=== PATIENT | female | born 1990 | race Caucasian/White ===

== ENCOUNTER 2024-08-03 17:04 | Emergency (ER) | payer MEDICAID, SELFPAY ==
[2024-08-03 17:12] VITALS: BP 94/54; PULSE 117; RESP 15; TEMP 36.9; O2SAT 96; BMI 22.7
[2024-08-03 17:48] LABS: Basophils % 0.5 %; Eosinophils % 0.3 %; Hematocrit 38.2 % (36-47); Lymphocytes # 1.4 10^3/uL (0.8-4.8); Lymphocytes % 37.7 %; Mean Corpuscular HGB Conc 33.5 g/dL (30-55); Mean Corpuscular Hemoglobin 28.5 pg (27-33); Mean Corpuscular Volume 85.1 fl (85-98); Mean Platelet Volume 10.4 fL (7.4-10.4); Monocytes # 0.3 10^3/uL (0.2-0.9); Monocytes % 7.4 %; Neutrophils # 2.03 10^3/uL (1.8-7.7); Neutrophils % 53.8 %; Nucleated Red Blood Cells % 0 %; Platelet Count 142 10^3/cmm (157-399); Red Blood Count 4.49 10^6/uL (3.85-5.65); Red Cell Distribution Width 12.8 % (12.1-15.1); White Blood Count 3.77 10^3/uL (3.29-11.43)
[2024-08-03 17:59] LABS: Slide Review Slide Review Perform
[2024-08-03 18:01] LABS: HCG, Serum Qual Negative (Negative)
[2024-08-03 18:08] LABS: Alanine Aminotransferase 121 U/L (0-33); Albumin Level 3.9 g/dL (3.5-5.2); Alkaline Phosphatase 133 U/L (35-105); Anion Gap 18.9 (5-19); Aspartate Amino Transferase 112 U/L (0-32); Blood Urea Nitrogen 8 mg/dL (6-20); Calcium 8.4 mg/dL (8.5-10.5); Carbon Dioxide 21 mmol/L (22-29); Chloride 104 mmol/L (98-107); Creatinine Clr Calc Pharmacy 203.5353; Globulin 2.7 g/dL (1.3-4.6); Glomerular Filtration Rate 186.2 mL/min (90-130); Glucose 82 mg/dL (65-115); Lipase 17 U/L (13-60); Osmolality Calculated 287 mOsm/kg (285-295); Potassium 3.9 mmol/L (3.5-5.1); Sodium 140 mmol/L (136-145); Total Bilirubin 0.8 mg/dL (0.15-1.2); Total Protein 6.6 g/dL (6.6-8.7)
[2024-08-03 20:19] LABS: Bilirubin Urine 1+ (Negative); Blood Urine Negative (Negative); Glucose Urine UA Negative (Normal); Ketones Urine 4+ (Negative); Leukocyte Esterase Urine Negative (Negative); Nitrate Urine Negative (Negative); Protein Urine Trace (Negative); Specific Gravity, Urine 1.022 (1.005-1.030); Urine Appearance Clear (CLEAR); Urine Color Dark Yellow (Yellow); pH Urine 5.5 (5-7)
[2024-08-03 20:21] LABS: Add Urine Microscopic? YES; Bacteria Urine None Seen /hpf; Hyaline Casts Urine 2.87 /lpf; RBC Urine 0-2 /hpf (0-2); Squamous Epithelial Cell Urine 0-5 /hpf (0-5)
--- NOTE | 2024-08-03 20:38 | CTR_ITS ---
PROCEDURE INFORMATION: Exam: CT Abdomen And Pelvis With Contrast Exam date and time: 08/03/2024 9:07 PM Age: 33 years old Clinical indication: Pain and abnormal findings; Abnormal lab test; Elevated liver enzymes; Fever and nausea and vomiting; Abdominal pain; Localized; Prior surgery; Surgery date: 6+ months; Surgery type: Left oophorectomy. Iud; Lower abd pain with fever and n/v. Hypotensive with elevated lfts. ; Additional info: Abd pain, fever TECHNIQUE: Imaging protocol: Computed tomography of the abdomen and pelvis with contrast. Radiation optimization: All CT scans at this facility use at least one of these dose optimization techniques: automated exposure control; mA and/or kV adjustment per patient size (includes targeted exams where dose is matched to clinical indication); or iterative reconstruction. Contrast material: OMNI 350; Contrast volume: 100 ml; Contrast route: INTRAVENOUS (IV); COMPARISON: No relevant prior studies available. RADIATION DOSE METRICS: Total DLP (mGy-cm): 1125.7 FINDINGS: Liver: Liver is normal in size and attenuation. Gallbladder and biliary ducts: No biliary tree dilation. No high density gallstones or gallbladder inflammatory change. Pancreas: Normal. No ductal dilation. Spleen: Spleen demonstrates homogeneous parenchyma and measures 12.3 cm in length. Adrenal glands: Normal configuration. Kidneys and ureters: Kidneys enhance symmetrically and demonstrate no evidence of mass, calculus, obstruction, or inflammation. Stomach and bowel: Small amount of fluid noted in the stomach. No visible gastric ulcer or significant mucosal enhancement. Normal caliber small bowel. Moderate fecal debris noted throughout the entire colon. Appendix: Normal appendix is confirmed. Intraperitoneal space: No free air. No significant fluid collection. Vasculature: Normal caliber arterial structures. Lymph nodes: No enlarged lymph nodes. Urinary bladder: Unremarkable as visualized. Reproductive: Prominent right ovary and adnexal soft tissue. Left ovary is not seen with confidence. Normal contour uterus. IUD appears properly positioned. Bones/joints: No fracture or destructive lesion. Soft tissues: No perineal/perianal abscess or inflammation. CT/CT abdomen pelvis w con* [id number] IMPRESSION: 1. Prominent heterogeneous right adnexal structures and ovary. Consider ultrasound for more detailed characterization. 2. Normal appearance of the liver, gallbladder, and biliary tree. Etiology of patient's abnormal liver function tests is unclear.
[2024-08-03] MEDS: sodium chloride 0.9% 1,000 ML 999 ML IV ×2 (21:03→22:02)
[2024-08-03] MEDS: ondansetron 2 mg/ML SDV 2 mL 4 MG IVP (21:03)
[2024-08-03] MEDS: ketorolac 30 mg/mL INJ IVP (21:03)
[2024-08-03 21:08] LABS: Lactic Sepsis W/Reflex 0.9 mmol/L (0.5-2.2)
[2024-08-03] MEDS: iohexol 350 mg/mL 500 mL Btl (per mL) IV (21:10)
[2024-08-03] MEDS: piperacillin-tazobactam 3.375 GM in sodium chloride 0.9% (plus) 50 ML IV (21:29)
--- NOTE | 2024-08-03 21:52 | USR_ITS ---
PROCEDURE INFORMATION: Exam: US Pelvis, Complete, Non-Obstetric Exam date and time: 08/03/2024 10:43 PM Age: 33 years old Clinical indication: Abnormal findings; Abnormal imaging test; Prior surgery; Surgery date: 6+ months; Surgery type: Unsure of dates but patient has had left ovary removed; Additional info: Right adenexal mass TECHNIQUE: Imaging protocol: Transabdominal pelvic nonobstetric ultrasound. Complete exam. Real time ultrasound with image documentation. COMPARISON: CT abdomen pelvis w con* [id number] 08/03/2024 9:07 PM FINDINGS: Uterus: Uterus is normal in morphology. IUD appears properly positioned. There is a sliver of fluid in the endometrial canal. Right ovary/adnexa: Physiologic appearance of the right ovary with numerous peripheral follicles. Ovary measures 2.6 x 3.5 x 3.9 cm for a volume of 18 cc. A lobulated anterior follicle measures 1.8 cm maximal dimension. There is low volume free fluid in the right hemipelvis. Color Doppler flow imaging and spectral analysis confirm appropriate arterial and venous waveforms. Left ovary/adnexa: Left ovary is surgically absent by report. No left adnexal mass. Intraperitoneal space: No intraperitoneal fluid. Urinary bladder: Normal. US/US pelv w/transvag [id number] IMPRESSION: Mildly enlarged right ovary with numerous peripheral follicles may reflect polycystic ovarian disease. There is normal blood flow in the ovary. No evidence of tubo-ovarian abscess.
[2024-08-03 22:03] VITALS: BP 96/60; PULSE 72; RESP 18; O2SAT 97
--- NOTE | 2024-08-03 22:34 | ED_ITS ---
HPI - Female Genitourinary 2 General: Chief complaint: Urogenital-Female Stated complaint: lower backpain, n/v Time Seen by Provider: 08/03/24 20:27 History of Present Illness: 33 year old female patient presenting with back pain, abdominal pain, nausea and vomiting. She has run fevers she said. She was seen at urgent care earlier in the week, and given ciprofloxacin for a urinary tract infection. She says she has not improved. She feels generally weak, dizzy. She has not held solid food down. She does not believe she is . Related Data Previous Rx's ?Medication ?Instructions ?Recorded ketorolac 10 mg tablet 10 mg PO TID PRN pain #10 ta bs 08/03/24 ondansetron 4 mg disintegrating 4 mg PO Q6H PRN nausea and 08/03/24 tablet vomiting #14 tabs Allergies Allergy/AdvReac Type Severity Reaction Status Date / Time No Known Allergies Allergy Verified 08/03/24 17:15 Physical Exam 2 Const: COMMON NORMALS: no acute distress GENERAL APPEARANCE: cooperative; not ill appearing and not frail appearing HENMT: COMMON NORMALS: normocephalic, atraumatic and Normal external nose present HEAD & SCALP: normocephalic and atraumatic FACE & SINUS: normal facial exam and face symmetric NOSE: Normal external nose present Eye: COMMON NORMALS: Equal, round and reactive pupils present and EOMs intact bilaterally PUPIL: Yes Equal, round and reactive pupils present Neck/C-Spine: GENERAL: Yes trachea midline Chest: CHEST: Yes Symmetrical chest wall rise Resp: COMMON NORMALS: normal respiratory effort, No retractions, No use of accessory muscles and clear to auscultation bilaterally AUSCULTATION: clear to auscultation bilaterally Cardio: COMMON NORMALS: regular rate and regular rhythm RATE: regular rate RHYTHM: regular rhythm GI: COMMON NORMALS: Normal to inspection, nondistended, normoactive bowel sounds present PALPATION: Yes Tenderness to palpation present (GI) (diffusely) Extremity: COMMON NORMALS: no pedal edema Neuro: SAVANNA COMA SCALE: document GCS findings [place] coma scale eye opening: Spontaneous [place] coma scale verbal response: Orientated [place] coma scale motor response: Obey commands [place] coma scale total score: 15 S ENSORY EXAM: Yes extremities (intact) Psych: COMMON NORMALS: speech normal SPEECH: Yes normal speech Skin: COMMON NORMALS: no rashes or lesions noted GENERAL SKIN EXAM: no rashes or lesions noted Course 2 Vital Signs: Vital signs: Vital Signs Temperature 98.4 F 08/03/24 17:12 Pulse Rate 62 08/03/24 23:59 Respiratory Rate 16 08/03/24 23:59 Blood Pressure 107/65 08/03/24 23:59 Pulse Oximetry 98 08/03/24 23:59 Oxygen Delivery Me thod Room Air 08/03/24 22:03 MDM - Female Medical Decision Making This patient was slightly hypotensive on arrival. She has improved after 2 liters intravenous fluid bolus, ketorolac and Zofran. She feels much better. She has had a dose of IV antibiotics. WBC is 3.8. I liked gases 0.9. Urinalysis is negative for leukocyte esterase, but has 6 to 10 WBC's. Indicitaive of partially treated UTI. Slight elevation in LFTs. Acetamenophen level is normal. tick panel is sent although there is no history of tick bite given mild low wbc and platelet counts, elevated lfts. Prominent heterogeneous right adnexal structures. Pelvic ultrasound shows are right ovary with numerous peripheral follicles suggestive of PCOS. With improvement in her condition, she'll be discharged home to continue her antibiotics for UTI she was previously prescribed. Oral hydration. Returned for worsening symptoms. Symptomatic treatment otherwise. Lab Data 08/03/24 17:39 08/03/24 17:39 Radiology Impressions Abdomen/Pelvis CT 08/03/24 20:38 IMPRESSION: 1. Prominent heterogeneous right adnexal structures and ovary. Consider ultrasound for more detailed characterization. 2. Normal appearance of the liver, gallbladder, and biliary tree. Etiology of patient's abnormal liver function tests is unclear. Pelvic/Transvag US 08/03/24 21:52 IMPRESSION: Mildly enlarged right ovary with numerous peripheral follicles may reflect polycystic ovarian disease. There is normal blood flow in the ovary. No evidence of tubo-ovarian abscess. Laboratory Results WBC 3.77 10^3/uL (3.29-11.43) 08/03/24 17:39 RBC 4.49 10^6/uL (3.85-5.65) 08/03/24 17:39 Hgb 12.80 g/dL (11.27-16.99) 08/03/24 17:39 Hct 38.2 % (36-47) 08/03/24 17:39 MCV 85.1 fl (85-98) 08/03/24 17:39 MCH 28.5 pg (27-33) 08/03/24 17:39 MCHC 33.5 g/dL (30-55) 08/03/24 17:39 RDW 12.8 % (12.1-15.1) 08/03/24 17:39 Plt Count 142 10^3/cmm (157-399) L 08/03/24 17:39 MPV 10.4 fL (7.4-10.4) 08/03/24 17:39 Neut % (Auto) 53.8 % 08/03/24 17:39 Lymph % (Auto) 37.7 % 08/03/24 17:39 [place] % (Auto) 7.4 % 08/03/24 17:39 Eos % (Auto) 0.3 % 08/03/24 17:39 Baso % (Auto) 0.5 % 08/03/24 17:39 Neut # (Auto) 2.03 10^3/uL (1.8-7.7) 08/03/24 17:39 Lymph # (Auto) 1.4 10^3/uL (0.8-4.8) 08/03/24 17:39 [place] # (Auto) 0.3 10^3/uL (0.2-0.9) 08/03/24 17:39 Eos # (Auto) 0.0 10^3/uL (0.0-0.8) 08/03/24 17:39 Baso # (Auto) 0.0 10^3/uL (0.0-0.1) 08/03/24 17:39 Nucleated RBC % (auto) 0 % 08/03/24 17:39 Nucleated RBCs # 0.0 /100WBC 08/03/24 17:39 Sodium 140 mmol/L (136-145) 08/03/24 17:39 Potassium 3.9 mmol/L (3.5-5.1) 08/03/24 17:39 Chloride 104 mmol/L (98-107) 08/03/24 17:39 Carbon Dioxide 21 mmol/L (22-29) L 08/03/24 17:39 Anion Gap 18.9 (5-19) 08/03/24 17:39 BUN 8 mg/dL (6-20) 08/03/24 17:39 Creatinine 0.4 mg/dL (0.5-0.9) L 08/03/24 17:39 GFR Calculation 186.2 mL/min (90-130) H 08/03/24 17:39 Glucose 82 mg/dL (65-115) 08/03/24 17:39 Calculated Osmolality 287 mOsm/kg (285-295) 08/03/24 17:39 Lactic Acid 0.9 mmol/L (0.5-2.2) 08/03/24 17:39 Calcium 8.4 mg/dL (8.5-10.5) L 08/03/24 17:39 Total Bilirubin 0.8 mg/dL (0.15-1.2) 08/03/24 17:39 AST 112 U/L (0-32) H 08/03/24 17:39 ALT 121 U/L (0-33) H 08/03/24 17:39 Alkaline Phosphatase 133 U/L (35-105) H 08/03/24 17:39 Total Protein 6.6 g/dL (6.6-8.7) 08/03/24 17:39 Albumin 3.9 g/dL (3.5-5.2) 08/03/24 17:39 Globulin 2.7 g/dL (1.3-4.6) 08/03/24 17:39 Lipase 17 U/L (13-60) 08/03/24 17:39 HCG, Qual Negative (Negative) 08/03/24 17:39 Urine Color Dark yellow (Yellow) A 08/03/24 20:07 Urine Appearance Clear (CLEAR) 08/03/24 20:07 Urine pH 5.5 (5-7) 08/03/24 20:07 Ur Specific [place] 1.022 (1.005-1.030) 08/03/24 20:07 Urine Protein Trace (Negative) A 08/03/24 20:07 Urine Glucose (UA) Negative (Normal) 08/03/24 20: Urine Ketones 4+ (Negative) 08/03/24 20:07 Urine Blood Negative (Negative) 08/03/24 20:07 Urine Nitrate Negative (Negative) 08/03/24 20:07 Urine Bilirubin 1+ (Negative) H 08/03/24 20:07 Urine Urobilinogen 1.0 mg/dL (Negative) 08/03/24 20:07 Ur Leukocyte Esterase Negative (Negative) 08/03/24 20:07 Urine RBC 0-2 /hpf (0-2) 08/03/24 20:07 Urine WBC 6-10 /hpf (0-5) 08/03/24 20:07 Ur Squamous Epith Cells 0-5 /hpf (0-5) 08/03/24 20:07 Amorphous Sediment Not Reportable 08/03/24 20:07 Urine Bacteria None seen /hpf (NONE) 08/03/24 20:07 Hyaline Casts 2.87 /lpf 08/03/24 20:07 Acetaminophen < 5.0 ug/mL (10-30) L 08/03/24 17:39 All radiology interpretation(s) finalized by discharge Discharge Plan Discharge Patient Disposition: Home Clinical Impression: Urinary tract infection, Acute dehydration Condition: Stable Prescriptions: New ondansetron 4 mg tablet,disintegrating 4 mg PO Q6H PRN (Reason: nausea and vomiting) Qty: 14 0RF ketorolac 10 mg tablet 10 mg PO TID PRN (Reason: pain) Qty: 10 0RF Discharge Orders: Discharge ED (Routine); Ordered 08/03/24 Ordered By: Cornelius Lott Patient Instructions: Dehydration (ED), Urinary Tract Infection in Women (ED), Opioid Safety, Pain Management Activity Restrictions/Additional Instructions: Continue to drink plenty of liquids for the next 48 hours. Use the nausea medication scheduled every 4 hours while awake for the first 24 hours, then as needed following that. Continue your antibiotics. Return for fever greater than 100, worsening pain, vomiting liquids or medications, other concerning symptoms. Call your doctor in the morning for follow-up appointment. Print Language: Ukrainian Coding Level of Care Code ED Access Rep for Tommy Stone
[2024-08-03 22:38] LABS: Acetaminophen < 5.0 ug/mL (10-30)
[2024-08-03 23:59] VITALS: BP 107/65; PULSE 62; RESP 16; O2SAT 98
== END 2024-08-04 00:06 | disposition home or self-care (01) ==
PROVIDERS: Emergency Medicine; Emergency Provider Emergency Medicine
DX: N39.0 Urinary tract infection, site not specified (principal); E86.0 Dehydration; Z98.890 Other specified postprocedural states
CPT/HCPCS: 36415; 74177; 76830; 76856; 80053; 80307; 81001; 83605; 83690; 84703; 85025; 87040; 96365; 96366; 96375; 99285; J1885; J2405; J2543; J7030

== ENCOUNTER → 2025-02-05 15:47 | Outpatient (BNVA) | payer MEDICAID, SELFPAY | PROVIDERS: Visit Provider Obstetrics & Gynecology | DX: Z01.419 Encounter for gynecological examination (general) (routine) without abnormal findings (principal) | CPT/HCPCS: 87624 ==